=== PATIENT | male | born 1995 | race Caucasian/White ===

== ENCOUNTER 2020-10-05 08:00 | Outpatient (CLI) | payer OTHER | END 2020-10-05 23:59 | disposition home or self-care (01) | LOC: LAB.N 08:00 | PROVIDERS: ATTEND Nurse Practitioner | DX: J18.9 Pneumonia, unspecified organism (principal); Z20.822 Contact with and (suspected) exposure to COVID-19 ==

== ENCOUNTER 2022-12-19 09:47 | Outpatient (CLI) | payer OTHER ==
--- NOTE | 2022-12-19 18:21 | MRI Report ---
PROCEDURE: MRI brain with and without contrast INDICATIONS: CEREBRAL CYSTS, TINNITUS, OTALGIA, HEADACHE TECHNIQUE: Multiplanar multisequential MR images of the brain were obtained before and after intrave nous contrast administration. COMPARISON: None. FINDINGS: CSF spaces: Basal cisterns are patent. No extra-axial fluid collections. Ventricles are normal in size and shape. Brain: No midline shift. No intracranial bleeds or masses. No abnormal intracranial enhancement. The brainstem appears normal. Diffusion-weighted images demonstrate no acute infarct. Normal intrav ascular flow voids are present. [Large arachnoid cyst in the left middle cranial fossa is again not ed associated with left temporal lobe hypoplasia, unchanged from the prior. Skull and face: Calvarial marrow is normal in signal. Orbits appear normal. Sinuses: Sinuses and mastoids appear clear. 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
== END 2022-12-19 09:48 | disposition home or self-care (01) ==
LOC: DI 09:47
PROVIDERS: ATTEND Nurse Practitioner Family
DX: H93.19 Tinnitus, unspecified ear (principal); H92.03 Otalgia, bilateral; G44.219 Episodic tension-type headache, not intractable; Q04.6 Congenital cerebral cysts; Q02 Microcephaly
CPT/HCPCS: 70553; A9585

== ENCOUNTER 2023-01-21 14:40 | Outpatient (CLI) | payer OTHER ==
--- NOTE | 2023-01-21 15:14 | Sleep Patient Instructions ---
Sleep Center Visit Summary - Patient Visit Information Reason for Visit: Initial consult for evaluation of sleep disordered breathing and other sleep issues. - Patient Instructions Instructions Attached: Sleep Study Home Monitor Additional Instructions: You will be completing a sleep study, either an in-lab polysomnography (PSG) or home sleep study (HST). You will follow-up in the sleep care office after the sleep study is completed to hear the results and talk about therapy, if needed. You will be called by our office staff to schedule this appointment, but you may contact us with any questions. - Clinic Information Contact: [facility] [address] [place] [address] [email or web address] T: [phone]
--- NOTE | 2023-01-21 15:19 | SLEEP CARE CONSULTATION ---
Information from patient questionnaire entered by Ginette Hyman. I have reviewed and concur with the information entered by Ginette Hyman. This document represents the service I personally performed and the decisions made by me, Yulissa Heath ARNP. History of Present Illness Service Date and Time: 01/21/2023 1440 Reason for Visit: New patient Chief Complaint: reports: Snoring, Observed pauses in breathing, Fatigue, Frequent awakenings at night Date of Onset: 2YRS Usual bedtime: 0930PM Time it takes to fall asleep: 30MINS Snores at night: Yes Observed to quit breathing while asleep: Yes Sleeps alone due to snoring: No Number of times waking at night: 4-5 Reasons for waking at night: reports: Other ([place]; woke up with extreme [place] and sore throat). denies: Choking, Snoring, Gasping for air Toss, Turn, or Twitch while sleeping: Yes Recalls having dreams: Yes Usually gets out of bed at: 0430; weekends 07-10 AM Feels refreshed in the morning: No Morning headache: Yes (2-3 times a week; last 3-4 hours, takes Ibuprofen) Sleepy or fatigued during the day: Yes Ever fallen asleep while driving: Yes (drowsy driving; no accidents) Takes day naps: No Dreams during day naps: No Prior sleep studies: No Additional HPI information: I had the pleasure of seeing CHELI GAN today regarding the possibility of him having a sleep disorder. His current complaints are fatigue, frequent night awakenings, observed pauses in breathing and snoring. He states that he has been told that he stops breathing at night. He snores and will be heard gasping with the snore. He has woke up with a dry throat and once with blood on his tongue. He thought this was from snoring so hard that night. He is constantly tired during the day and does not wake up feeling rested. He avoids taking a nap because it reduces amount of time he can sleep at night. He can take up to 30 minutes to fall asleep and can wake up to 5 times or more after falling asleep, mostly for unknown reasons. He does remember dreaming and has had a few times with sleep paralysis. He does wake up with headaches that resolve with ibuprofen in about 4 hours. His parents both snore and his mother tells him she has sleep apnea but is not treated. - Parasomnia Symptoms Ever been unable to move upon waking from sleep: Yes (couple times) Walks in sleep: No Talks in sleep: Yes Ever acted out dreams in sleep: No Ever felt weak in the knees when startled or emotional: No Bothered by creepy, crawly, restless sensations in legs: Yes (mostly when sitting still or when laying down trying to sleep) Problems with memory or concentration: Yes (memory; hard time remembering regular) Subjective Initial [place] Sleepiness Scale score: 17 (01/21/23) Past Medical History Past Medical History: reports: Other (bilateral carpal tunnel) Social History The patient's occupation is a AM. Patient is Single and lives in . Have you smoked in the past 12 months: No Alcohol use: Yes Alcohol amount and frequency: 2-3 WEEK Caffeine use: Yes Caffeine amount and frequency: 1-2 A DAY Family History Family history of sleep disordered breathing: Yes Family Hx Sleep Apnea: Mother: Snoring, Sleep apnea - Untreated, Father: Snoring, Sleep apnea - Untreated, Sibling: Snoring, Grandparent: Snoring Allergies and Home Medications Known drug allergies: Yes (penicillin family, lactose intolerant) Drug allergies reviewed: Yes Home medication list reviewed: Yes Review of Systems Weight gain over past 5 years: 40-50 Cardiovascular: denies: high blood pressure (is told it is high) Respiratory: denies: shortness of breath Gastrointestinal: denies: heartburn Neurological: denies: headaches Psychiatric: denies: anxiety, depression Ear/Nose/Throat: denies: tonsillectomy Endocrine: denies: thyroid disease Immunologic: reports: allergies to food or environment (possible seasonal (spring); lactose intolerant) Physical Exam Vital signs obtained and entered by: GINETTE Suarez MA Blood Pressure: 130/90 (LEFT ARM) Cuff size: long Heart Rate: 91 O2 Saturation: 95 Height: 5 ft 8 in Weight: 259 lb 6.4 oz Body Mass Index: 39.4 BMI Classification: Obese Neck circumference: 17 Mouth and throat: normal Soft palate: long Hard palate: normal Uvula: normal Uvula visualization: 100% Mallampati Class I Tongue: enlarged in size with teeth resendiz on lateral edges Tonsils: 2+ Neck: normal w/o lymphadenopathy or thyromegaly Heart: regular rate and rhythm Lungs: clear bilaterally Impression and Plan 1. Suspected Obstructive Sleep Apnea-Hypopnea Syndrome, as suggested by a history of loud and irregular snoring, observed cessation of breath while asleep, gasping or choking in sleep, morning headache, frequent awakening during the night, unrefreshed sleep, cognitive impairment, and excessive daytime sleepiness. Narrow oropharynx and obesity are common predisposing factors for obstructive sleep apnea-hypopnea syndrome. I recommend proceeding to polysomnography to confirm the diagnosis and to assess severity. If the patient has significant sleep disordered breathing, a manual CPAP titration study will also be performed to find the optimal treatment pressure. I informed the patient of what the sleep studies involve and after some discussion, obtained agreement to proceed. The pathophysiology of obstructive sleep apnea-hypopnea syndrome was discussed with the patient and health risks of cardiovascular and cerebrovascular disease if not treated. Risks of drowsy driving discussed in detail and patient advised to avoid long distance driving and to [employer] at the first sign of drowsiness. Patient agreed to plan. * Schedule polysomnography. * Avoid long distance driving or driving when feeling sleepy. * Avoid alcohol, sedative and muscle relaxant around bedtime. * Attempt to lose weight. * Review instructions provided by trained office staff on how to prepare for the sleep study. * Return for follow-up after sleep study completed. Counseling Topics: Weight loss health impact Plan: PSG/HST Visit Type: In Office Time Spent with Patient (minutes): 30 Provider Statement: I spent 100% of the Face to Face Visit with the patient with greater than 50% spent counseling the patient and coordination of care.
[2023-01-21 15:20] VITALS: BP 130/90; O2SAT 95
== END 2023-01-21 14:41 | disposition home or self-care (01) ==
LOC: SC 14:40
PROVIDERS: ATTEND Nurse Practitioner Family
DX: R06.83 Snoring (principal); R53.83 Other fatigue; G47.8 Other sleep disorders; R06.81 Apnea, not elsewhere classified; R51.9 Headache, unspecified; R41.89 Other symptoms and signs involving cognitive functions and awareness; G47.10 Hypersomnia, unspecified; E66.9 Obesity, unspecified; Z68.39 Body mass index [BMI] 39.0-39.9, adult
CPT/HCPCS: 99203; 99212

== ENCOUNTER 2023-02-02 12:12 | Outpatient (CLI) | payer OTHER | END 2023-02-02 12:13 | disposition home or self-care (01) | LOC: SC 12:12 | PROVIDERS: ATTEND Nurse Practitioner Family | DX: G47.33 Obstructive sleep apnea (adult) (pediatric) (principal); R09.02 Hypoxemia; E66.9 Obesity, unspecified; Z68.39 Body mass index [BMI] 39.0-39.9, adult | CPT/HCPCS: 95806 ==

== ENCOUNTER 2023-02-18 11:32 | Outpatient (CLI) | payer OTHER ==
--- NOTE | 2023-02-18 11:59 | Sleep Patient Instructions ---
Sleep Center Visit Summary - Patient Visit Information Reason for Visit: Sleep study followup - Patient Instructions Instructions Attached: CPAP Dc, CPAP Additional Instructions: You are being started on CPAP therapy with pressure setting at 5-20 cmH2O. You will need to call the sleep care office to set up your follow up once you have your APAP machine and we will schedule a visit to check compliance and response to therapy at that time. You may call the office with any concerns about pressure feeling too low or too much for adjustment, if needed. You should contact DME supplier for any questions or concerns about mask or equipment. Please call office to schedule a follow up appointment in the sleep care office one month after obtaining new device. - Clinic Information Contact: [facility] [address] [place] [address] [email or web address] T: [phone]
--- NOTE | 2023-02-18 12:04 | SLEEP CARE CONSULTATION ---
Information from patient questionnaire entered by Marylu Hyman. I have reviewed and concur with the information entered by Marylu Hyman. This document represents the service I personally performed and the decisions made by , Yulissa Heath ARNP. History of Present Illness Service Date and Time: 02/18/2023 1132 Initial [place] Sleepiness Scale score: 17 (01/21/23) Current [place] Sleepiness Scale score: 18 (02/18/23) Additional HPI information: CHELI GAN returns for follow up and results of the recently performed home sleep study. The sleep study showed extremely severe obstructive sleep apnea with an average AHI of 148.2 and christianne oxygen saturation of 73%. I explained the pathophysiology behind obstructive sleep apnea. We then spent quite a bit of time discussing different treatment options. For mild obstructive sleep apnea, surgery and oral appliance are alternatives to nasal CPAP therapy but in moderate or severe cases, nasal CPAP is the most effective and reliable treatment. I reviewed the impact of weight changes on sleep apnea and strongly recommended losing weight. After some discussion, the patient opted to go with the nasal CPAP therapy. Nasal autoCPAP set at 5-20 cmH20 will be ordered with rationale explained. A manual titration study will be ordered if unable to find optimal pressure with office adjustments. I explained how CPAP machine works and what to expect when using the machine. Using CPAP every night in order to get used to it was emphasized. Patient advised to put CPAP mask on before getting into bed so as not to fall asleep without CPAP. To assist acclimation to CPAP use, it could also be used for a short time during day while reading or watching TV. The patient was instructed to call the CPAP supplier to discuss any mechanical problem that may occur. If the mask given is uncomfortable or is difficult to keep on through the night even with adjustment, contact the CPAP supplier as many will replace with another mask style if notified before 30 days. If snoring or perceives is not getting enough air or too much air from the machine, notify this office. Patient counseled not drink alcohol less than 4 hours before bedtime as it can increase snoring and apnea. Patient was cautioned about risks of drowsy driving until sleepiness symptoms resolve. Sleep Study - Results Type of Sleep Study: Home sleep study (COMPLETED 02/02/23) Prior sleep studies: No Polysomnography/Home Sleep Study results: Physician Impression: The quality of the study is good. The length of the study is adequate (> 240 minutes). Please also see the tabulated and graphic data. 1. Obstructive Sleep Apnea-Hypopnea (ICD-10 G47.33), extremely severe, with an AHI of 148.2/hr and christianne SaO2 of 73%. During the study, the patient had 946 apneas (946 o bstructive, 0 central, 0 mixed) and 24 hypopneas. The longest episode lasted 61.5 seconds. The patient only slept supine during this study (supine AHI was 148.2 and non-supine, 0.00). 2. Hypoxemia (ICD-10 R09.02), moderate, with the lowest oxygen saturation of 73 % and 135.6 minutes with SaO2 under 90%. Baseline oxygen saturation was normal (Average oxygen saturation was 91%). Allergies and Home Medications Known drug allergies: No Drug allergies reviewed: Yes Home medication list reviewed: Yes (no changes) Review of Systems Review of systems same as previous: Yes (NO CHANGE) Physical Exam Vital signs obtained and entered by: MARYLU Suarez MA Blood Pressure: 142/86 (LEFT ARM) Cuff size: long Heart Rate: 81 O2 Saturation: 97 Height: 5 ft 8 in Weight: 254 lb Body Mass Index: 38.6 BMI Classification: Obese Impression and Plan 1. Obstructive Sleep Apnea-Hypopnea Syndrome, extremely severe, with lowest oxygen saturation of 73%. Obviously this is the cause of the patients symptoms of unrefreshed sleep, and excessive daytime sleepiness. As mentioned above, the patient will be started on nasal autoCPAP therapy with pressure set at 5-20 cmH2 O. A manual titration study will be completed if unable to find optimal treatment pressure with office adjustments. Compliance guidelines also reviewed. A copy of compliance guidelines will be given for reference at check out. 2. Hypoxemia, moderate, with a christianne oxygen saturation of 73% and 135.6 minutes spent under 90%. The baseline oxygen saturation was normal with an average oxygen saturation of 91%. 3. Obesity, unspecified. Currently patients BMI is 38.6. Obesity increases the risk of apnea, CPAP pressure requirements and overall health risks especially cardiovascular and diabetes. Thus patient is advised to lose weight. * Nasal auto CPAP therapy, pressure at 5-20 cm H2O. * Attempt to lose weight. * Avoid alcohol consumption near bedtime. * Avoid supine sleep until using CPAP. * The patient is again cautioned about driving until sleepiness completely resolves. * Return one month after CPAP obtained. I will assess response to therapy and compliance at that time. Counseling Topics: Weight loss health impact Prescriptions: Auto CPAP Plan: followup for compliance visit Visit Type: In Office Time Spent with Patient (minutes): 20 Provider Statement: I spent 100% of the Face to Face Visit with the patient with greater than 50% spent counseling the patient and coordination of care.
[2023-02-18 12:10] VITALS: BP 142/86; O2SAT 97
== END 2023-02-18 11:33 | disposition home or self-care (01) ==
LOC: SC 11:32
PROVIDERS: ATTEND Nurse Practitioner Family
DX: G47.33 Obstructive sleep apnea (adult) (pediatric) (principal); R09.02 Hypoxemia; E66.9 Obesity, unspecified; Z68.38 Body mass index [BMI] 38.0-38.9, adult
CPT/HCPCS: 99212; 99213

== ENCOUNTER 2023-06-02 14:37 | Outpatient (CLI) | payer OTHER ==
--- NOTE | 2023-06-02 14:59 | Sleep Patient Instructions ---
Sleep Center Visit Summary - Patient Visit Information Reason for Visit: First compliance visit - Patient Instructions Additional Instructions: You were here for follow up of CPAP therapy. You will be continued on CPAP therapy with pressure at 5-8 cmH2O. Please let us know if the pressure change is uncomfortable and we can make further adjustments of the pressure. You should follow up with sleep care in 1-2 months. You may contact us sooner for any questions or concerns. - Clinic Information Contact: [facility] [address] [place] [id number] [email or web address] T: [phone]
[2023-06-02 15:04] VITALS: BP 145/95; O2SAT 98
--- NOTE | 2023-06-02 15:04 | SLEEP CARE CONSULTATION ---
Information from patient questionnaire entered by Marylu Hyman. I have reviewed and concur with the information entered by Marylu Hyman. This document represents the service I personally performed and the decisions made by , Yulissa Heath ARNP. History of Present Illness Service Date and Time: 06/02/2023 1437 Previous diagnosis: Extremely Severe, Obstructive Sleep Apnea-Hypopnea Syndrome AHI: 148.2 Reason for follow up: first compliance Equipment type: CPAP (Resmed Airsense 11, s/u 03/2023) Equipment obtained from: [employer] Mask style: Full face Mask brand: [employer] ([place]alito full, small cushion) Backup mask available: No (will keep old mask when replaced) Prior sleep studies: No Type of Sleep Study: Home sleep study (COMPLETED 02/02/23) HPI additional information: CHELI GAN was diagnosed to have extremely severe, AHI 148.2, obstructive sleep apnea-hypopnea syndrome and returned today for CPAP therapy first compliance follow-up. Sleep Study - Results Type of Sleep Study: Home sleep study (COMPLETED 02/02/23) Prior sleep studies: No CPAP Compliance Data - Data Reviewed with Patient Average duration of nightly device use: 7 HRS 35 MINS Compliance rate %: 100 (03/18/23-04/16/23; days used) Current pressure setting (cmH2O): 5-20 (median 8.8, avg 11.3, max 12.8) Average residual AHI: 3.4 Central apnea: 1.9 Obstructive apnea: 0.7 Hypopnea: 0.7 Average large leak: 3.5 L/min Compliance data discussion: His pressure was changed to 4-6 cmH2O within last 30 days. He feels it is too low. His average AHI is 2.3 with using pressure 6 cmH2O 95% of time. Subjective Patient concerns: reports: mask leak noise, condensation in mask/hose. denies: aerophagia, mask discomfort, air blowing in eyes, dry mouth, nose, throat, epistaxis Observed to snore while using device: Yes (occasionally) Current pressure setting perceived as: too low On therapy, patient: reports: sleeping better, awakening more refreshed, being more awake and alert during the day, more rested overall. denies: drowsiness while driving Initial [place] Sleepiness Scale score: 17 (01/21/23) Current [place] Sleepiness Scale score: 9 (06/02/23) Allergies and Home Medications Known drug allergies: No Drug allergies reviewed: Yes Home medication list reviewed: Yes (new med for nerve pain, don't know name) Allergy and home medication list: Allergies No Known Drug Allergies Allergy (Verified 05/29/23 11:55) Review of Systems Review of systems same as previous: No (ENDOSCOPY) Physical Exam Vital signs obtained and entered by: MARYLU Suarez MA Blood Pressure: 145/95 (RIGHT ARM) Cuff size: long Heart Rate: 85 O2 Saturation: 98 Height: 5 ft 8 in Weight: 261 lb 9.6 oz Body Mass Index: 39.7 BMI Classification: Obese Impression and Plan 1. Obstructive Sleep Apnea-Hypopnea Syndrome, extremely severe, with good treatment compliance and good apnea control. On CPAP therapy, the patient has better sleep quality and is more rested overall. He has significant improvement of his sleep apnea and is feeling benefit of CPAP use. He is getting some condensation in the mask and the hose. I explained how to adjust the humidity and heated hose and then adjusted the heated hose up 1 increment to 82 degrees online. He knows how to adjust further if needed to reduce condensation. He feels that the pressure at 4-6 cm H2O is too low and he is snoring in his mask according to his occasionally. I will adjust it to 5-8 cm H2O for patient comfort and to reduce snoring. I will have him come back in 1-2 months for follow up. He voiced understanding and agreement with plan of care. Patient's apnea severity and rationale for treatment to reduce apnea, improve sleep quali ty and reduce cardiovascular and cerebrovascular events was reviewed. 2. Obesity, unspecified. Currently patients BMI is 39.7. Obesity increases the risk of apnea, CPAP pressure requirements and overall health risks especially cardiovascular and diabetes. Thus patient is advised to lose weight. * Change auto CPAP pressure to 5-8 cmH2O * Notify me if snoring with mask or feeling that the pressure is too much or too little * Attempt to lose weight * Call this office if any problems using CPAP * Return for follow up in 1-2 months, or sooner if concerns arise Adjust device pressure to (cmH2O): 5-8 Counseling Topics: Spare mask, Weight loss health impact Follow up with Sleep Care in: 1-2 months Visit Type: In Office Time Spent with Patient (minutes): 20 Provider Statement: I spent 100% of the Face to Face Visit with the patient with greater than 50% spent counseling the patient and coordination of care.
== END 2023-06-02 14:38 | disposition home or self-care (01) ==
LOC: SC 14:37
PROVIDERS: ATTEND Nurse Practitioner Family
DX: G47.33 Obstructive sleep apnea (adult) (pediatric) (principal); E66.9 Obesity, unspecified; Z68.39 Body mass index [BMI] 39.0-39.9, adult
CPT/HCPCS: 99212; 99213

== ENCOUNTER 2023-07-12 10:25 | Emergency (ER) | payer OTHER ==
[2023-07-12 11:01] VITALS: O2SAT 97
--- NOTE | 2023-07-12 12:04 | ED Physician Documentation ---
PD HPI BACK PAIN - Stated complaint Stated Complaint: LWR BK PX - Chief complaint Chief Complaint: Back Pain - History obtained from History obtained from: Patient - History of Present Illness Timing - onset: Today, Yesterday (pt with some soreness of low back from chores yesterday but mild. Then when attempting to start corded lawnmower engine, had abrupt onset of pain and spasm in low back left side muscles.) Location: Upper Quality: Pain, Spasm Associated symptoms: No: Fever, Weakness, Numbness, Incontinent of urine Improves with: No: Rest, Meds (tried ibuprofen and topical cream at home.) Contributing factors: Twisting Recently seen: Not recently seen Review of Systems Constitutional: denies: Fever, Chills Nose: denies: Rhinorrhea / runny nose, Congestion Throat: denies: Sore throat Cardiac: denies: Chest pain / pressure Respiratory: denies: Cough GI: denies: Abdominal Pain, Vomiting, Diarrhea Skin: denies: Rash, Lesions PD PAST MEDICAL HISTORY - Past Medical History Past Medical History: Yes Respiratory: Sleep apnea GI: Other - Past Surgical History Past Surgical History: No - Present Medications Home Medications: Ambulatory Orders Medication Instructions Recorded Confirmed Gabapentin [Neurontin] 1 cap PO DAILY 07/12/23 07/12/23 HYDROcod/ACETAM 5/325 [[place] 5/325] 1 ea PO Q6H PRN #18 tablet 07/12/23 Lidocaine Patch 5% [Lidoderm Patch] 1 patch TOP DAILY PRN #10 patch 07/12/23 Meloxicam [Mobic] 7.5 mg PO BID 10 Days #20 tablet 07/12/23 methocarbamoL [Robaxin] 500 mg PO Q6H PRN #30 tablet 07/12/23 - Allergies Allergies/Adverse Reactions: Allergies Allergy/AdvReac Type Severity Reaction Status Date / Time Penicillins Allergy Hives Verified 07/12/23 10:54 - Social History Does the pt smoke?: No Smoking Status: Never smoker Does the pt drink ETOH?: Yes Does the pt have substance abuse?: No - Immunizations Immunizations are current?: Yes - POLST Patient has POLST: No PD ED PE NORMAL - Vitals Vital signs reviewed: Yes - General General: Alert and oriented X 3, Well developed/nourished, Other (appears very uncomfortable with guarded ROM of the back, wincing with movements. ) - Back Back: No CVA TTP, No spinal TTP, Other (tender left lateral muscle area near iliac crest muscles. ) - Derm Derm: Normal color, Warm and dry - Neuro Neuro: Alert and oriented X 3, No motor deficit, No sensory deficit Results - Vitals Vitals: Vital Signs - 24 hr 07/12/23 07/12/23 10:50 13:52 Temperature 36.4 C L Heart Rate 93 81 Respiratory 20 20 Rate Blood Pressure 146/88 H 150/108 H O2 Saturation 97 97 Oxygen O2 Source Room air PD Medical Decision Making - ED course Complexity details: re-evaluated patient (improved pain level and spasms after IM meds of Dilaudid 2 mg (pt with high BMI) and toardol plus PO robiaxin. Pt and spouse asked about imaging and I reviewed back pain guidelines that recommend against it initially due to issues of overdiagnosis and typically resolve with treatment empirically. ), considered differential (pt with abrupt back pain without neuro symtposm while forceful twist motion starting lawmower. No red flags otherwise. ), d/w patient Departure - Departure Disposition: Home, Self Care Clinical Impression: Low back strain Condition: Stable Record reviewed to determine appropriate education?: Yes Instructions: ED Sprain Strain Lumbar Follow-Up: KERRI SOLORZANO NP [Primary Care Provider] - Prescriptions: Lidocaine Patch 5% [Lidoderm Patch] 1 patch TOP DAILY PRN #10 patch PRN Reason: pain Meloxicam [Mobic] 7.5 mg PO BID 10 Days #20 tablet HYDROcod/ACETAM 5/325 [[place] 5/325] 1 ea PO Q6H PRN #18 tablet PRN Reason: Pain methocarbamoL [Robaxin] 500 mg PO Q6H PRN #30 tablet PRN Reason: Spasms Comments: Back pain episodes with muscular strain mechanism is relatively common. Typically will improve with several days to week or so of a combination of physical modalities such as heat, massage, stretching, chiropractic or physical therapy, combined with medications of topical patches, anti-inflammatories, muscle relaxant. To that add Tylenol 500 650 mg 4 times a day for pain or hydrocodone/acetaminophen every 4-6 hours if needed for worse pain. Typically the opiate pain medicine is needed just in the first 2 or 3 days until things are improving enough. Follow-up with your primary care if not steadily improving over several days and resolved by a week or so. Sometimes episodes like this can last even several weeks before improving but at that point would typically think of adding other modalities or medications and physical therapy. Back pain guidelines suggest not approaching imaging right off due to false positives and issues of overdiagnosis. Minor disc problems and such typically resolve with treatment anyway. Off work today in the next 2 days to allow for early resolution of symptoms. I sent your prescriptions to your preferred pharmacy. I am prescribing a short course of narcotic pain medication for you. These are potentially dangerous and addictive medications that should be used carefully. These medications may constipate you. Take an [id number] stool softener such as docusate twice daily with plenty of water while taking these medications. If you go 24 hours without a bowel movement, take [id number] MiraLAX, per package instructions. Do not drink or drive while taking these medications. If you received narcotic or sedating medications while in the emergency department do not drive for 24 hours. Store this medication in a safe, secure place and out of reach of children. It is a violation of federal law to give or sell this medication to another person or to use in a manner other than prescribed. The ED will not refill narcotic prescriptions, including prescriptions lost or stolen. You can dispose of unwanted medications at the [facility]'s office or at several pharmacies such as [facility]. Forms: Activity restrictions Discharge Date/Time: 07/12/23 13:54
[2023-07-12] MEDS: KETOROLAC 30 MG/ML VIAL IM STA (12:46)
[2023-07-12] MEDS: HYDROmorphone 2 MG/ML VIAL IM STA (12:47)
[2023-07-12] MEDS: methocarbamoL 500 MG TABLET PO STA (12:47)
[2023-07-12 13:56] VITALS: BP 150/108
== END 2023-07-12 13:54 | disposition home or self-care (01) ==
LOC: ED 10:25
DX: S39.012A Strain of muscle, fascia and tendon of lower back, initial encounter (principal); X58.XXXA Exposure to other specified factors, initial encounter; Y93.E9 Activity, other interior property and clothing maintenance; Z68.39 Body mass index [BMI] 39.0-39.9, adult
CPT/HCPCS: 96372; 99283; A9270; J1170